=== PATIENT | female | born 1965 | race Caucasian/White ===

== ENCOUNTER 2016-10-28 04:39 | Emergency (ER) | payer MEDICAID, OTHER ==
[~2016-10-28 04:39] MED LIST: ALBU6.7H INH; ALPR-138 PO; AMBI5TAB PO; ATOV750S PO; ATRITAB PO; DIOV40TA PO; FLUO1CRE3 TOP; HYDR-755 PO; HYDR12.56 PO; MELO15TA2 PO; NEUR100C PO; SOMA350T; lidocaine viscous TOP
[2016-10-28 04:42] VITALS: BP 137/101; PULSE 94; RESP 20; TEMP 97.4; TEMP 97.8; O2SAT 99
[2016-10-28] MEDS ORDERED: SODIUM CHLOR 0.9% 1000 ML INJ 1,000 ML IV ONE (04:58)
[2016-10-28] MEDS ORDERED: SODIUM CHLORIDE 0.9% FLUSH 10 ML FLUSH IVF PRN (05:00)
[2016-10-28 05:16] LABS: AUTOMATED NEUTROPHIL # 4.7 TH/MM3 (1.8-7.7); BASOPHIL # 0.1 TH/MM3 (0-0.2); BASOPHIL % 0.9 % (0.0-2.0); EOSINOPHIL # 0.3 TH/MM3 (0-0.4); EOSINOPHIL % 3.1 % (0.0-4.0); HEMATOCRIT 38.5 % (35.0-46.0); HEMO FLAGS DIFF FINAL; LYMPH % 35.7 % (9.0-44.0); LYMPHOCYTE # 3.2 TH/MM3 (1.0-4.8); MEAN CELL VOLUME 88.5 FL (80.0-100.0); MEAN CORPUSCULAR HEMOGLOBIN 29.2 PG (27.0-34.0); MONO % 7.4 % (0.0-8.0); NEUT % 52.9 % (16.0-70.0); PLATELET COUNT 234 TH/MM3 (150-450); RED BLOOD COUNT 4.35 MIL/MM3 (4.00-5.30); RED CELL DISTRIBUTION WIDTH 14.7 % (11.6-17.2); WHITE BLOOD COUNT 8.9 TH/MM3 (4.0-11.0)
[2016-10-28] MEDS ORDERED: ALBUAER3 INH (05:27)
[2016-10-28] MEDS ORDERED: METO25TA3 PO (05:27)
[2016-10-28] MEDS ORDERED: MONT10TA4 PO (05:27)
[2016-10-28] MEDS ORDERED: HYDR1CAP30 PO (05:27)
[2016-10-28] MEDS ORDERED: ISOS20TA PO (05:27)
[2016-10-28] MEDS ORDERED: SUMA100T2 PO (05:27)
[2016-10-28] MEDS ORDERED: PLAV75TA29 PO (05:27)
[2016-10-28] MEDS ORDERED: ONDA1TAB16 (05:27)
[2016-10-28] MEDS ORDERED: ZETI10TA5 PO (05:27)
[2016-10-28] MEDS ORDERED: HYDR-3583 PO (05:27)
[2016-10-28] MEDS ORDERED: ROFL1TAB2 PO (05:27)
[2016-10-28] MEDS ORDERED: FLUO1TAB17 (05:27)
[2016-10-28] MEDS ORDERED: TIZA4CAP3 PO (05:27)
[2016-10-28] MEDS ORDERED: AMLO5TAB2 PO (05:27)
[2016-10-28] MEDS ORDERED: ALBU.5I NEB (05:27)
[2016-10-28] MEDS ORDERED: SPIRCAP INH (05:27)
[2016-10-28 05:32] LABS: AMPHETAMINE, URINE NEG (NEG); BARBITURATES, URINE NEG (NEG); COCAINE, URINE POS (NEG)
[2016-10-28 05:33] VITALS: BP 149/85; PULSE 72; RESP 18; O2SAT 100
--- NOTE | 2016-10-28 06:32 | PD ---
HPI Chief Complaint: OD/ Ingestion Time Seen by Provider: 04:58 Travel History International Travel<30 days: No Contact w/Intl Traveler<30days: No Traveled to known affect area: No History of Present Illness HPI 50-year-old female arrives to the ER following a near opioid overdose. She became bradypneic and cyanotic. She received Narcan and then woke up and became very agitated. In the ER the time of arrival she is agitated and saying she is cold. History is limited in this scenario. She is reassessed after she relaxed somewhat reports that she has HIV however she does not know her CD4 count or viral load. She reports strict compliance with antiretrovirals. History Past Medical History Anxiety: Yes Arthritis: Yes (BACK/SHOULDER/NECK) Asthma: Yes Autoimmune Disease: Yes (RHEUMATOID ARTHRITIS,RAYNAUD'S) Bipolar Disorder: Yes Depression: Yes Headaches: Yes Hearing: No Hypertension: Yes Immune Disorder: Yes (HIV) Neurologic: Yes (NEUROPATHY) Migraines: Yes Vision or Eye Problem: No ?: Not Ovarian Cysts: Yes Tubal Ligation: Yes Past Surgical History Hysterectomy: Yes Tonsillectomy: Yes Other Surgery: Yes (LYMPH NODES IN NECK) Social History Tobacco Use in Home: Yes Alcohol Use: Yes ("FEW TIMES A WEEK") Tobacco Use: Yes (1/2 PPD) Substance Use: Yes (HISTORY OF) Allergies-Medications (Allergen,Severity, Reaction): Coded Allergies: Sulfa (Verified Allergy, Severe, 10/28/16) Reported Meds & Prescriptions Reported Meds & Active Scripts Active Reported Hydroxyzine Pamoate 25 Mg Cap 25 Mg PO BID PRN Albuterol Neb (Albuterol Sulfate) 2.5 Mg/0.5 Ml Neb 2.5 Mg NEB TID NEB PRN Note: The Albuterol Sulfate Inhalation Solution is concentrated and must be diluted. Read complete instructions carefully before using. Tizanidine (Tizanidine HCl) 4 Mg Cap 4 Mg PO TID Ondansetron (Ondansetron HCl) 4 Mg Tab Metoprolol Tartrate 25 Mg Tab 25 Mg PO DAILY Zetia (Ezetimibe) 10 Mg Tab 10 Mg PO DAILY Amlodipine (Amlodipine Besylate) 5 Mg Tab 5 Mg PO DAILY Fluoxetine HCl (Fluoxetine HCl (Pmdd)) 20 Mg Tab Proair Hfa 8.5 GM Inh (Albuterol Sulfate) 90 Mcg/Act Aer 2 Puff INH TID PRN 108 mcg/actuation Proair Hfa 8.5 GM Inh (Albuterol Sulfate) 90 Mcg/Act Aer 2 Puff INH TID PRN 108 mcg/actuation Hydrocodone-Acetaminophen 10-325 mg Tab 1 Tab PO QID PRN Spiriva Handihaler (Tiotropium Inh) 18 Mcg Cap 18 Mcg INH DAILY 1 capsule = 18 mcg Isosorbide Mononitrate 20 Mg Tab 20 Mg PO DAILY Take 2 doses 7 hours apart. Sumatriptan (Sumatriptan Succinate) 100 Mg Tab 100 Mg PO ONCE PRN If a satisfactory response has not been obtained at 2 hours, a second dose may be administered Plavix (Clopidogrel Bisulfate) 75 Mg Tab 75 Mg PO DAILY Montelukast (Montelukast Sodium) 10 Mg Tab 10 Mg PO HS Daliresp (Roflumilast) 500 Mcg Tab 500 Mcg PO DAILY ROS Except as stated in HPI: all other systems reviewed are Neg Physical Exam Narrative GENERAL: 50 yo F, WNWD, SKIN: Focused skin assessment warm/dry. HEAD: Atraumatic. Normocephalic. EYES: Pupils equal and round. No scleral icterus. No injection or drainage. ENT: No nasal bleeding or discharge. Mucous membranes pink and moist. NECK: Trachea midline. No JVD. CARDIOVASCULAR: Regular rate and rhythm. No murmur appreciated. RESPIRATORY: No accessory muscle use. Clear to auscultation. Breath sounds equal bilaterally. GASTROINTESTINAL: Abdomen soft, non-tender, nondistended. Hepatic and splenic margins not palpable. MUSCULOSKELETAL: No obvious deformities. No clubbing. No cyanosis. No edema. NEUROLOGICAL: Awake and alert. No obvious cranial nerve deficits. Motor grossly within normal limits. Normal speech. PSYCHIATRIC: Appropriate mood and affect; insight and judgment normal. Data Data Last Documented VS Vital Signs Date Time Temp Pulse Resp B/P Pulse Ox O2 Delivery O2 Flow Rate FiO2 10/28/16 05:33 149/85 10/28/16 05:33 72 18 100 Nasal Cannula 2 10/28/16 04:42 97.4 Orders Complete Blood Count With Diff (10/28/16 04:58) Iv Access Insert/Monitor (10/28/16 04:58) Cath For Specimen (10/28/16 04:58) Ecg Monitoring (10/28/16 04:58) Oximetry (10/28/16 04:58) Sodium Chloride 0.9% Flush (Ns Flush) (10/28/16 05:00) Sodium Chlor 0.9% 1000 Ml Inj (Ns 1000 M (10/28/16 04:58) Drug Screen, Random Urine (10/28/16 04:58) Alcohol (Ethanol) (10/28/16 04:58) Tylenol (Acetaminophen) (10/28/16 04:58) Comprehensive Metabolic Panel (10/28/16 04:58) Sodium Polysty Sulfate Liq (Kayexalate L (10/28/16 07:15) Labs Laboratory Tests Test 10/28/16 10/28/16 05:00 06:20 White Blood Count 8.9 TH/MM3 Red Blood Count 4.35 MIL/MM3 Hemoglobin 12.7 GM/DL Hematocrit 38.5 % Mean Corpuscular Volume 88.5 FL Mean Corpuscular Hemoglobin 29.2 PG Mean Corpuscular Hemoglobin 33.0 % Concent Red Cell Distribution Width 14.7 % Platelet Count 234 TH/MM3 Mean Platelet Volume 9.5 FL Neutrophils (%) (Auto) 52.9 % Lymphocytes (%) (Auto) 35.7 % Monocytes (%) (Auto) 7.4 % Eosinophils (%) (Auto) 3.1 % Basophils (%) (Auto) 0.9 % Neutrophils # (Auto) 4.7 TH/MM3 Lymphocytes # (Auto) 3.2 TH/MM3 Monocytes # (Auto) 0.7 TH/MM3 Eosinophils # (Auto) 0.3 TH/MM3 Basophils # (Auto) 0.1 TH/MM3 CBC Comment DIFF FINAL Differential Comment Urine Opiates Screen NEG Urine Barbiturates Screen NEG Urine Amphetamines Screen NEG Urine Benzodiazepines Screen NEG Urine Cocaine Screen POS Urine Cannabinoids Screen NEG Sodium Level 140 MEQ/L Potassium Level 5.3 MEQ/L Chloride Level 106 MEQ/L Carbon Dioxide Level 27.0 MEQ/L Anion Gap 7 MEQ/L Blood Urea Nitrogen 14 MG/DL Creatinine 0.85 MG/DL Estimat Glomerular Filtration 71 ML/MIN Rate Random Glucose 121 MG/DL Calcium Level 7.9 MG/DL Total Bilirubin 0.3 MG/DL Aspartate Amino Transf 170 U/L (AST/SGOT) Alanine Aminotransferase 83 U/L (ALT/SGPT) Alkaline Phosphatase 108 U/L Total Protein 7.9 GM/DL Albumin 3.0 GM/DL Acetaminophen Level LESS THAN 2.0 MCG/ML Ethyl Alcohol Level LESS THAN 3 MG/DL MDM Medical Decision Making Medical Screen Exam Complete: Yes Emergency Medical Condition: Yes Medical Record Reviewed: Yes Differential Diagnosis Opiate overdose, polysubstance abuse, electrolyte imbalance Narrative Course CBC & BMP Diagram 10/28/16 05:00 10/28/16 06:20 Potassium is hemolyzed AST is 170 ALT 83 Toxicology positive for cocaine Alcohol less than 3 The patient is resting comfortably and feels better, is alert and in no distress. The patients results and examination findings were discussed. The repeat examination is unremarkable and benign. The history, exam, diagnostic testing, and current condition do not suggest any significant pathology to warrant further testing, continued ED treatment, admission, or surgical evaluation at this point. The vital signs have been stable. The patient does not have uncontrollable pain, intractable vomiting, or other significant symptoms. The patient's condition is stable and appropriate for discharge. The patient will pursue further outpatient evaluation with a primary care physician or other designated or consulting physician as indicated in the discharge instructions. The patient expressed understanding and was agreeable with this plan. Diagnosis Primary Impression: Opioid overdose Qualified Code: T40.2X1A - Opioid overdose, accidental or unintentional, initial encounter Additional Impressions: Cocaine abuse Transaminitis Referrals: Primary Care Physician Additional Instructions: You have a choice when it comes to health care, and we are glad that you chose [facility]. Hopefully, we have met your expectations on today's visit. You are welcome to return to [facility] at any time, as we are committed to meeting the health care needs of our community. Med/Other Pt SpecificInfo: No Change to Meds Disposition: 01 DISCHARGE HOME Condition: Stable Homero James MD Oct 28, 2016 06:32
[2016-10-28 06:46] LABS: ALKALINE PHOSPHATASE 108 U/L (45-117); TOTAL BILIRUBIN ADULT 0.3 MG/DL (0.2-1.0)
[2016-10-28 06:58] LABS: ALT (GPT) 83 U/L (10-53); ANION GAP 7 MEQ/L (5-15); AST (GOT) 170 U/L (15-37); BLOOD UREA NITROGEN 14 MG/DL (7-18); CHLORIDE 106 MEQ/L (98-107); GLOMERULAR FILTRATION RATE 71 ML/MIN (>89); SODIUM (NA) 140 MEQ/L (136-145)
[2016-10-28 07:01] LABS: ACETAMINOPHEN LESS THAN 2.0 MCG/ML (10.0-30.0); POTASSIUM 5.3 MEQ/L (3.5-5.1)
[2016-10-28] MEDS ORDERED: SODIUM POLYSTYRENE SULFONATE SUSP 15 GM/60 ML CUP PO ONE (07:15)
== END 2016-10-28 08:11 | disposition home or self-care (01) ==
LOC: NEPE 04:39
DX: T40.2X1A Poisoning by other opioids, accidental (unintentional), initial encounter (principal); F14.10 Cocaine abuse, uncomplicated; R74.0 Nonspecific elevation of levels of transaminase and lactic acid dehydrogenase [LDH]; F41.8 Other specified anxiety disorders; I10 Essential (primary) hypertension; F17.210 Nicotine dependence, cigarettes, uncomplicated; Z88.2 Allergy status to sulfonamides
CPT/HCPCS: 80053; 80307; 85025; 99284; J7030; P9612